=== PATIENT | female | born 1970 | race Caucasian/White ===

== ENCOUNTER 2019-06-24 09:24 | Emergency (ER) | payer SELFPAY ==
--- NOTE | 2019-06-24 09:55 | ER Document Report ---
ED Medical Screen (RME) - General Chief Complaint: Psych Problem Stated Complaint: IVC Time Seen by Provider: 06/24/19 09:54 Primary Care Provider: PAOLO CAMACHO PA [Primary Care Provider] - Follow up as needed Notes: Patient is a 48-year-old female who presents the emergency department with IVC paperwork. According to her IVC paperwork, she has a history of schizophrenia and is supposed to be on haloperidol and lorazepam, but has not been taking her medications. She has been wandering around the holidays and has been hostile towards her family. Patient denies any suicidal or homicidal ideation. Exam: Anxious. I have greeted and performed a rapid initial assessment of this patient. A comprehensive ED assessment and evaluation of the patient, analysis of test results and completion of medical decision making process will be conducted by an additional ED providers. TRAVEL OUTSIDE OF THE [place] IN LAST 30 DAYS: No - Related Data Allergies/Adverse Reactions: erythromycin base [Erythromycin Base] Allergy (Intermediate, Verified 06/24/19 09:29) stomach pains Past Medical History - Past Medical History Cardiac Medical History: Denies: Hx Coronary Artery Disease, Hx Heart Attack, Hx Hypertension Pulmonary Medical History: Reports: Hx Asthma Denies: Hx Bronchitis, Hx COPD, Hx Pneumonia Neurological Medical History: Denies: Hx Cerebrovascular Accident, Hx Seizures Musculoskeltal Medical History: Reports Hx Arthritis - knees Past Surgical History: Denies: Hx Hysterectomy - Immunizations Hx Diphtheria, Pertussis, Tetanus Vaccination: Yes Physical Exam - Vital signs Vitals: Temp Pulse Resp BP Pulse Ox 98.3 F 134 H 17 150/100 H 97 06/24/19 09:34 06/24/19 09:34 06/24/19 09:34 06/24/19 09:34 06/24/19 09:34 Course - Vital Signs Vital signs: Temp Pulse Resp BP Pulse Ox 98.3 F 134 H 17 150/100 H 97 06/24/19 09:34 06/24/19 09:34 06/24/19 09:34 06/24/19 09:34 06/24/19 09:34 Doctor's Discharge - Discharge Referrals: PAOLO CAMACHO PA [Primary Care Provider] - Follow up as needed
[2019-06-24] MEDS ORDERED: HALOPERIDOL LACTATE INJ 5 MG/1 ML VIAL IM ONE (10:09)
[2019-06-24] MEDS ORDERED: ZIPRASIDONE MESYLATE INJ/PF 20 MG SDV IM ONE (10:10)
--- NOTE | 2019-06-24 10:23 | ER Document Report ---
ED General - General Chief Complaint: Psych Problem Stated Complaint: IVC Time Seen by Provider: 06/24/19 09:54 Primary Care Provider: PAOLO CAMACHO PA [ALLIED HEALTH PROFESSIONAL] - Follow up as needed TRAVEL OUTSIDE OF THE [place] IN LAST 30 DAYS: No - HPI Notes: Patient is a 48-year-old female with history of schizophrenia that presents to the emergency department for chief complaint of psychosis. When I asked the patient why she is in the emergency room she responded "Because I told the department of social media manager not to come in my room and take my lipstick". Patient presented to the ED with IVC paperwork completed by her family. She has a reported history of schizophrenia and has been off medication for the last few years. Patient has had increasing hallucinations and paranoid behavior per family. Patient's brother also states she has been physically combative with him and aggressive verbally towards other family members. Yesterday patient was found driving erratically and then trespassing on someone else's front yard. She was asked to leave the front yard but we did not and was then arrested for trespassing. Patient was released this morning and was again erratically walking down the highway. Patient does live with family. She denies homicidal and suicidal ideation. When I attempted to ask her more questions regarding how she is feeling why she is in the emergency room she kept pointing to her wristband demanding that I pronounce her name. Past Medical History: Schizophrenia Past Surgical History: Reviewed in chart Social History: Lives with family Family History: Reviewed and noncontributory for presenting illness Allergies: Reviewed, see documented allergy list. REVIEW OF SYSTEMS: Unable to obtain because of medical condition PHYSICAL EXAMINATION: Vital signs reviewed, nursing noted reviewed. GENERAL: Well-appearing, well-nourished and in no acute distress. HEAD: Atraumatic, normocephalic. EYES: Eyes appear normal, extraocular movements intact, sclera anicteric, conjunctiva are normal. ENT: nares patent, oropharynx clear without exudates. Moist mucous membranes. NECK: Normal range of motion, supple without lymphadenopathy LUNGS: Breath sounds clear to auscultation bilaterally and equal. No wheezes rales or rhonchi. HEART: Tachycardic rate and regular rhythm without murmurs ABDOMEN: Soft, nontender, normoactive bowel sounds. No rebound, guarding, or rigidity. No masses appreciated. EXTREMITIES: Nontender, good range of motion, no pitting or edema. NEUROLOGICAL: No focal neurological deficits. Moves all extremities spontaneously Motor and sensory grossly intact on exam. PSYCH: Euphoric mood, flight of ideas SKIN: Warm, Dry, normal turgor, no rashes or lesions noted on exposed skin - Related Data Allergies/Adverse Reactions: erythromycin base [Erythromycin Base] Allergy (Intermediate, Verified 06/24/19 09:29) stomach pains Past Medical History - Social History Smoking Status: Unknown if Ever Smoked Family History: Reviewed & Not Pertinent - Past Medical History Cardiac Medical History: Denies: Hx Coronary Artery Disease, Hx Heart Attack, Hx Hypertension Pulmonary Medical History: Reports: Hx Asthma Denies: Hx Bronchitis, Hx COPD, Hx Pneumonia Neurological Medical History: Denies: Hx Cerebrovascular Accident, Hx Seizures Musculoskeletal Medical History: Reports Hx Arthritis - knees Past Surgical History: Denies: Hx Hysterectomy - Immunizations Hx Diphtheria, Pertussis, Tetanus Vaccination: Yes Physical Exam - Vital signs Vitals: Temp Pulse Resp BP Pulse Ox 98.3 F 134 H 17 150/100 H 97 06/24/19 09:34 06/24/19 09:34 06/24/19 09:34 06/24/19 09:34 06/24/19 09:34 Course - Re-evaluation Re-evalutation: 06/24/19 13:32 Patient declined to cooperate with blood draw. She became aggressive with staff. Patient was given Geodon and placed in four-point restraints so that medical evaluation could be performed and to prevent injury to staff and patient. Patient did calm down shortly after receiving the Geodon and was removed from the restraints. After medications her tachycardia and hypertension resolved. Her blood work is unremarkable. Urinalysis is still pending however patient at this point is medically cleared for further psychiatric evaluation and management of her untreated schizophrenia. Laboratory 06/24/19 06/24/19 06/24/19 11:48 11:48 11:48 WBC 5.6 RBC 4.21 Hgb 12.4 Hct 36.6 MCV 87 MCH 29.5 MCHC 34.0 RDW 13.6 Plt Count 189 Seg Neutrophils % 71.5 Lymphocytes % 15.0 Monocytes % 12.8 Eosinophils % 0.2 Basophils % 0.5 Absolute Neutrophils 4.0 Absolute Lymphocytes 0.8 Absolute Monocytes 0.7 Absolute Eosinophils 0.0 Absolute Basophils 0.0 Sodium 141.5 Potassium 3.3 L Chloride 109 H Carbon Dioxide 24 Anion Gap 9 BUN 13 Creatinine 0.57 Est GFR ( Amer) > 60 Est GFR (Non-Af Amer) > 60 Glucose 102 Calcium 9.2 Total Bilirubin 0.4 Direct Bilirubin 0.1 Neonat Total Bilirubin Not Reportable Neonat Direct Bilirubin Not Reportable Neonat Indirect Bili Not Reportable AST 21 ALT 14 Alkaline Phosphatase 40 Total Protein 6.4 Albumin 3.9 Serum HCG, Qual NEGATIVE Salicylates < 1.0 L Acetaminophen < 10 L Serum Alcohol < 10 06/24/19 13:34 - Vital Signs Vital signs: Temp Pulse Resp BP Pulse Ox 98.3 F 89 16 109/64 99 06/24/19 09:34 06/24/19 12:41 06/24/19 12:41 06/24/19 12:41 06/24/19 12:41 - Laboratory Result Diagrams: 06/24/19 11:48 06/24/19 11:48 Laboratory results interpreted by me: 06/24/19 11:48 Potassium 3.3 L Chloride 109 H Salicylates < 1.0 L Acetaminophen < 10 L Discharge - Discharge Clinical Impression: Psychosis Qualifiers: Psychosis type: other Qualified Code(s): F28 - Other psychotic disorder not due to a substance or known physiological condition Condition: Stable Disposition: PSYCH HOSP/UNIT Referrals: PAOLO CAMACHO PA [ALLIED HEALTH PROFESSIONAL] - Follow up as needed
[2019-06-24 11:59] LABS: ABSOLUTE LYMPHOCYTES (AUTO) 0.8 10^3/uL (0.5-4.7); ABSOLUTE MONOCYTES (AUTO) 0.7 10^3/uL (0.1-1.4); BASOPHILS % (AUTO) 0.5 % (0-2); EOSINOPHILS % (AUTO) 0.2 % (0-6); HEMATOCRIT 36.6 % (36.0-47.0); HEMOGLOBIN 12.4 g/dL (12.0-15.5); MEAN CORPUSCULAR HEMOGLOBIN 29.5 pg (27.0-33.4); MEAN CORPUSCULAR VOLUME 87 fl (80-97); MONOCYTES % (AUTO) 12.8 % (3-13); PLATELET COUNT 189 10^3/uL (150-450); RED BLOOD COUNT 4.21 10^6/uL (3.72-5.28); RED CELL DISTRIBUTION WIDTH 13.6 % (11.5-14.0); SEGMENTED NEUTROPHILS % (AUTO) 71.5 % (42-78); TOTAL CELLS COUNTED % (AUTO) 100 %; WHITE BLOOD COUNT 5.6 10^3/uL (4.0-10.5)
[2019-06-24 12:15] LABS: ALBUMIN 3.9 g/dL (3.5-5.0); ALKALINE PHOSPHATASE 40 U/L (38-126); ANION GAP 9 (5-19); ASPARTATE AMINO TRANSFERASE 21 U/L (14-36); BILIRUBIN,DIRECT 0.1 mg/dL (0.0-0.4); BILIRUBIN,TOTAL 0.4 mg/dL (0.2-1.3); BLOOD UREA NITROGEN 13 mg/dL (7-20); CALCIUM 9.2 mg/dL (8.4-10.2); CARBON DIOXIDE 24 mmol/L (22-30); CHLORIDE 109 mmol/L (98-107); GLUCOSE 102 mg/dL (75-110); POTASSIUM 3.3 mmol/L (3.6-5.0); TOTAL PROTEIN 6.4 g/dL (6.3-8.2)
[2019-06-24 12:18] LABS: ACETAMINOPHEN < 10 ug/mL (10-30); ALCOHOL < 10 mg/dL (NONE DETECTED); SALICYLATE < 1.0 mg/dL (2.0-20.0)
[2019-06-24] MEDS: BENZTROPINE MESYLATE 1 MG TABLET PO SCH (15:11)
[2019-06-24] MEDS: HALOPERIDOL 5 MG TABLET PO SCH (18:50)
--- NOTE | 2019-06-24 23:12 | EKG REPORT ---
SEVERITY:- NORMAL ECG - SINUS RHYTHM : Confirmed by: Lidya Hwang MD 24-Jun-2019 23:11:39
[2019-06-25] MEDS: BENZTROPINE MESYLATE 1 MG TABLET PO SCH (09:50)
[2019-06-25] MEDS: HALOPERIDOL 5 MG TABLET PO SCH (09:52)
[2019-06-25 12:02] VITALS: BP 127/77
[2019-06-25 12:33] LABS: APPEARANCE,URINE SLIGHTLY-CLOUDY; BILIRUBIN,URINE NEGATIVE (NEGATIVE); CALCIUM OXALATE CRYSTALS,URINE RARE /HPF; COLOR,URINE YELLOW; GLUCOSE, URINE NEGATIVE (NEGATIVE); KETONES,URINE 80 mg/dL (NEGATIVE); LEUKOCYTE ESTERASE,URINE SMALL (NEGATIVE); NITRITE,URINE NEGATIVE (NEGATIVE); PROTEIN,URINE 30 mg/dL (NEGATIVE); URINE SPECIFIC GRAVITY 1.026
[2019-06-25 12:51] LABS: URINE AMPHETAMINES SCREEN NEGATIVE; URINE BARBITURATES SCREEN NEGATIVE; URINE BENZODIAZEPINES SCREEN NEGATIVE; URINE COCAINE SCREEN NEGATIVE; URINE MARIJUANA (THC) SCREEN NEGATIVE; URINE METHADONE SCREEN NEGATIVE; URINE PHENCYCLIDINE SCREEN NEGATIVE
--- NOTE | 2019-06-25 13:01 | ER Document Report ---
Doctor's Note Notes: 06/25/19 13:00 Rounds: Chart reviewed and patient interviewed. She with a history of schizophrenia off her medication for years. Vital signs are all normal. Lab studies are all normal. Patient appears to be medically stable for transfer or discharge. Laurence Thompson MD
== END 2019-06-25 13:14 ==
LOC: ER 09:24
DX: F20.9 Schizophrenia, unspecified (principal); R00.0 Tachycardia, unspecified; J45.909 Unspecified asthma, uncomplicated; I10 Essential (primary) hypertension; Z78.1 Physical restraint status; Z88.1 Allergy status to other antibiotic agents
CPT/HCPCS: 93005; 99285; 96374; 36415; 80307 ×4; 84703; 85025; 80053; 81001; 93010; J3486